=== PATIENT | female | born 1965 | race Caucasian/White ===

== ENCOUNTER 2025-02-16 15:13 | Outpatient (OUT) | payer OTHER, SELFPAY ==
--- NOTE | 2025-02-16 15:26 | XR_ITS ---
[address] [address] Patient Name: LAZARUS RODRIGUEZ MRN: [id number] date: 1965 Sex: F Assigned Patient Location: [facility] Current Patient Location: [facility] Accession/Order Number: [id number] Exam Date: 02/16/2025 16:14 Report Date: 02/16/2025 16:14 At the request of: JAMESON LANIER MD Procedure: XR chest 2V Chest 2 views CLINICAL HISTORY: Bronchitis COMPARISON: None FINDINGS: Heart normal size. Lungs are clear. No free air. XR/XR chest 2V IMPRESSION: NO ACUTE CARDIOPULMONARY ABNORMALITY. Impression dictated by: Fernando Arenas Jr.OAmita02/16/2025 4:14 PM Dictation Location: [facility] Electronically authenticated by: [id number] Y Date: 02/16/2025 16:14
== END 2025-02-16 15:14 | disposition home or self-care (01) ==
PROVIDERS: Family Provider Family Medicine; PCP Family Medicine; Visit Provider Family Medicine
DX: J40 Bronchitis, not specified as acute or chronic (principal)
CPT/HCPCS: 71046